=== PATIENT | female | born 1995 | race Two or more races ===

== ENCOUNTER 2021-02-17 12:37 | Emergency (ER) | payer OTHER ==
[2021-02-17 12:57] VITALS: BP 116/86; PULSE 98; TEMP 97.2; BMI 21.9
== END 2021-02-17 14:23 | disposition home or self-care (01) ==
LOC: JERFT 12:37
DX: S01.81XA Laceration without foreign body of other part of head, initial encounter (principal)
CPT/HCPCS: 99282-25

== ENCOUNTER 2024-05-16 02:10 | Emergency (ER) | payer OTHER ==
[2024-05-16 02:18] VITALS: BP 105/66; PULSE 60; RESP 18; TEMP 98.8; BMI 21.9
[2024-05-16] MEDS: ONDANSETRON 4 MG/2 ML VIAL IVPUSH ONE (03:23)
[2024-05-16] MEDS: ACETAMINOPHEN 1000 MG/100 ML BAG IVPB ONE (03:23)
[2024-05-16] MEDS ORDERED: ACETAMINOPHEN INJECTION 100 ML IVPB ONE (03:26)
[2024-05-16] MEDS ORDERED: ONDANSETRON 4 MG/2 ML VIAL ONE (03:26)
[2024-05-16 03:42] LABS: BASO % 0.2 % (0-2.0); EOS % 0.2 % (0-4.5); HEMATOCRIT 41.6 % (32.4-45.2); HEMOGLOBIN 14.3 GM/dL (10.7-15.3); LYMPH % 7.8 % (8-40); MCH 31.1 pg (25.7-33.7); MCHC 34.4 g/dl (32.0-36.0); MEAN CELL VOLUME 90.4 fl (80-96); MEAN PLT VOLUME 7.4 fl (7.5-11.1); MONO % 4.1 % (3.8-10.2); NEUT % 87.7 % (42.8-82.8); PLATELET COUNT 217 10^3/uL (134-434); RDW 12.8 % (11.6-15.6)
[2024-05-16 03:49] LABS: INR 0.95 (0.83-1.09); PROTHROMBIN TIME (PATIENT) 10.9 SEC (9.7-13.0)
[2024-05-16 03:51] LABS: ACTIVATED PTT 24.8 SECONDS (25.2-36.5)
[2024-05-16 04:08] LABS: POTASSIUM 3.6 mmol/L (3.5-5.1)
[2024-05-16 04:10] LABS: CALCIUM 8.5 mg/dL (8.5-10.1)
[2024-05-16 04:11] LABS: BLOOD UREA NITROGEN 9.8 mg/dL (7-18)
[2024-05-16 04:14] LABS: CREATININE 0.7 mg/dL (0.55-1.3)
[2024-05-16 04:16] LABS: BILIRUBIN,TOTAL 0.3 mg/dL (0.2-1); TOT PROT 6.8 g/dl (6.4-8.2)
[2024-05-16 06:30] LABS: EPI CELLS 12 /uL (0-25.1); HYALINE CASTS 1 /uL (0-3.1); URINE APPEARANCE CLEAR; URINE BACTERIA 77 /uL (0-1359); URINE BILIRUBIN NEGATIVE (NEGATIVE); URINE COLOR YELLOW; URINE GLUCOSE (UA) NEGATIVE (NEGATIVE); URINE KETONE NEGATIVE (NEGATIVE); URINE LEUK ESTERASE NEGATIVE (NEGATIVE); URINE NITRITE NEGATIVE (NEGATIVE); URINE PROTEIN NEGATIVE (NEGATIVE); URINE RBC 301 /uL (0-23.9); URINE UROBILINOGEN 0.2 mg/dL (0.2-1.0); URINE WBC 16 /uL (0-25.8)
== END 2024-05-16 06:52 | disposition home or self-care (01) ==
LOC: JER 02:10
PROC: 3E033NZ Introduction of Analgesics, Hypnotics, Sedatives into Peripheral Vein, Percutaneous Approach (ICD-10-PCS; principal; 2024-05-16)
PROC: 3E033GC Introduction of Other Therapeutic Substance into Peripheral Vein, Percutaneous Approach (ICD-10-PCS; 2024-05-16)
DX: O03.9 Complete or unspecified spontaneous abortion without complication (principal)
CPT/HCPCS: 36415; 80053; 81003; 84702; 85025; 85610; 85730; 86850; 86900; 86901; 87086; 99284-25; J0131